=== PATIENT | female | born 2000 | race Hispanic/Latino ===

== ENCOUNTER 2022-10-30 10:56 | Emergency (ER) | payer BC ==
--- OUTSIDE RECORDS SUMMARY | 2022-10-30 10:59 | XMS REPORT | Continuity of Care Document ---
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 2- Seybold thrombosis thrombosis 00:00: - ) ) 00 Externa l 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 2-06 Seybold antibody antibody 00:00: - syndrome syndrome 00 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 l Rheumatoid Rheumatoid Disease Active 2021-11 K vick arthritis arthritis 2-06 Seyb old 00:00: - 00 Externa l Plantar Plantar Disease Active 2021-11 Veronica fasciitis fasciitis 2-06 Seyb old 00:00: - 00 Externa l Flat feet, Flat feet, Disease Active 2021-11 K elsey bilateral bilateral 2-06 Seyb old 00:00: - 00 Externa l Allergies, Adverse Reactions, Alerts Allergy Allergy Status Severity Reaction(s) Onset Inactive Treating Comm ents Source Name Type Date Date Clinician Penicill Propensi Active Hives 2021-11 Veronica ins ty to 2-06 Seybold adverse 00:00: - reaction 00 Externa s l Social History Social Habit Start Date Stop Date Quantity Comments Source Alcohol intake 2022-10-20 2022-10-20 Lifetime Veronica Sey bold - 00:00:00 00:00:00 non-drinker External (finding) Sex Assigned At [birth year] Veronica Chow ybold - 00:00:00 00:00:00 External Smoking Status Start Date Stop Date Source Never smoked tobacco Veronica thorne - External Medications Ordered Filled Start Stop Current Ordering Indication Dosage Frequency Signature Comments Components Source Medication Medication Date Date Medication? Clinician (SIG) Name Name Hydroxychlo 2021-11 Yes Veronica roquine 1-11 Seybold Sulfate 200 00:00: - MG oral 00 Externa Tablet l Baclofen 10 Yes Veronica MG oral 9-23 Seybold Tablet 00:00: - 00 Externa l Gabapentin Yes Veronica 100 MG oral 9-23 Seybold Capsule 00:00: - 00 Externa l Vital Signs Vital Name Observation Time Observation Value Comments Source Systolic blood 2022-10-20 17:13:00 84 mm[Hg] Veronica Seybold - pressure External Diastolic blood 2022-10-20 17:13:00 50 mm[Hg] Bettina y Seybold - pressure External Heart rate 2022-10-20 17:13:00 78 /min Veronica Timothy ramosbold - External Body temperature 2022-10-20 17:13:00 37.06 Georgie Anna ey Seybold - External Respiratory rate 2022-10-20 17:13:00 14 /min Anna ey Seybold - External Body height 2022-10-20 17:13:00 154.9 cm Veronica Timothy ramosbold - External Body weight 2022-10-20 17:13:00 59.421 kg Veronica Timothy ramosbold - External BMI 2022-10-20 17:13:00 24.75 kg/m2 Veronica ramosbobry - External Procedures This patient has no known procedures. Encounters Start End Encounter Admission Attending Care Care Encounter Source Date/Time Date/Time Type Type Clinicians Facility Department ID 2022-10-28 2022-10-28 Outpatient VERONICA DICKSON [id number] Veronica 00:00:00 00:00:00 KAT palacios 2022-10-20 2022-10-20 Outpatient VERONICA DICKSON [id number] Veronica 11:00:00 11:00:00 KAT palacios Results This patient has no known results.
--- NOTE | 2022-10-30 12:29 | RAD REPORT ---
EXAM DESCRIPTION: Mirza Single View10/30/2022 11:49 am CLINICAL HISTORY: Shortness of breath COMPARISON: none FINDINGS: The lungs appear clear of acute infiltrate. The heart is normal size IMPRESSION: No acute abnormalities displayed
[2022-10-30 12:50] LABS: Absolute Lymphocytes (CBC) 2.6 K/uL (0.7-4.9); Hematocrit 38.1 % (36.0-45.0); Lymphocytes % 34.4 % (15.3-44.8); MCV 90.1 fL (80-100); MPV 7.9 fL (7.6-11.3); RBC Red Blood Cell Count 4.23 M/uL (3.86-4.86)
[2022-10-30 12:53] LABS: Protime INR 1.12
--- NOTE | 2022-10-30 13:06 | RAD REPORT ---
EXAM DESCRIPTION: CT - Chest For Pe Angio - 10/30/2022 12:54 pm CLINICAL HISTORY: Chest pain. syncope COMPARISON: No comparisons TECHNIQUE: CT angiogram of the pulmonary arteries was performed with MIP. All CT scans are performed using dose optimization technique as appropriate and may include automated exposure control or mA/KV adjustment according to patient size. FINDINGS: No evidence of pulmonary thromboembolism. No acute aortic finding demonstrated. The lungs are clear. No significant pericardial or pleural fluid. No concerning bony finding. IMPRESSION: No evidence of pulmonary thromboembolism. No acute lung findings.
[2022-10-30 13:12] LABS: Albumin 4.2 g/dL (3.4-5.0); Bilirubin Direct 0.2 mg/dL (0-0.2); Bilirubin Total 0.8 mg/dL (0.2-1.0); Magnesium 2.2 mg/dL (1.6-2.4); Potassium 3.9 mmol/L (3.5-5.1); Protein, Total 8.1 g/dL (6.4-8.2); Troponin High Sensitivity 5.4 pg/mL (<58.9)
--- NOTE | 2022-10-30 14:10 | EDPHYS ---
Physician Documentation [facility] Name: Linette Wilson Age: 22 yrs Sex: Female : 2000 Arrival Date: 10/30/2022 Time: 10:58 Bed 10 Private MD: ED Physician Nguyễn Maki HPI: 10/30 11:13 This 22 yrs old Female presents to ER via EMS with complaints of Passed Out jmm Prior To Arrival. 11:13 The patient has experienced syncope. Onset: The symptoms/episode began/occurred jmm acutely, just prior to arrival. Duration: This was a single episode. Associated injury: The patient did not suffer any apparent associated injury. This is a 22-year-old female with history of antiphospholipid syndrome, DVTs, RA the presents emerged department after syncopal episode which occurred just prior to arrival. Patient was at work washing her hands in the restroom, she was found by a coworker. Patient currently denies any chest pain or shortness of breath. Patient states she recently had a negative ultrasound to reevaluate for DVTs. Patient is not currently taking anticoagulants. Patient denies chest pain. 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 - Social history:: Smoking status: Reported history of juuling and/or vaping. ROS: 11:13 Constitutional: Negative for fever, chills, and weight loss, Cardiovascular: Negative jmm for chest pain, palpitations, and edema, Respiratory: Negative for shortness of breath, cough, wheezing, and pleuritic chest pain, Abdomen/GI: Negative for abdominal pain, nausea, vomiting, diarrhea, and constipation. 11:13 Neuro: Positive for syncope. 11:13 All other systems are negative. Exam: 11:13 Constitutional: This is a well developed, well nourished patient who is awake, alert, jmm and in no acute distress. Head/Face: atraumatic. Eyes: EOMI, no conjunctival erythema appreciated ENT: Moist Mucus Membranes Neck: Trachea midline, Supple Chest/axilla: Normal chest wall appearance and motion. Cardiovascular: Regular rate and rhythm. No edema appreciated Respiratory: Normal respirations, no respiratory distress appreciated Abdomen/GI: Non distended Back: Normal ROM Skin: General appearance color normal MS/ Extremity: Moves all extremities, no obvious deformities appreciated, no edema noted to the lower extremities Neuro: Awake and alert Psych: Behavior is normal, Mood is normal, Patient is cooperative and pleasant Vital Signs: 12:13 BP 117 / 84; Pulse 64; Resp 20; Temp 99.1; Pulse Ox 100% ; Weight 58.06 kg; Height 5 kb3 ft. 1 in. (154.94 cm); Pain 0/10; 14:17 BP 104 / 82; Pulse 63; Resp 18; Pulse Ox 100% on R/A; tm3 12:13 Body Mass Index 24.19 (58.06 kg, 154.94 cm) kb3 MDM: 11:13 Patient medically screened. [facility] 14:09 Data reviewed: vital signs, nurses notes. Counseling: I had a detailed discussion with radha the patient and/or guardian regarding: the historical points, exam findings, and any diagnostic results supporting the discharge/admit diagnosis, lab results, radiology results, the need for outpatient follow up, to return to the emergency department if symptoms worsen or persist or if there are any questions or concerns that arise at home. 10/30 11:14 Order name: Basic Metabolic Panel; Complete Time: 13:15 [facility] 10/30 11:14 Order name: CBC with Diff; Complete Time: 12:55 [facility] 10/30 11:14 Order name: LFT's; Complete Time: 13:15 [facility] 10/30 11:14 Order name: Magnesium; Complete Time: 13:15 [facility] 10/30 11:14 Order name: NT PRO-BNP; Complete Time: 13:15 [facility] 10/30 11:14 Order name: PT-INR; Complete Time: 12:55 [facility] 10/30 11:14 Order name: Troponin HS; Complete Time: 13:15 [facility] 10/30 11:14 Order name: XRAY Chest (1 view); Complete Time: 12:36 [facility] 10/30 11:14 Order name: EKG; Complete Time: 11:14 [facility] 10/30 11:14 Order name: Cardiac monitoring; Complete Time: 14:08 [facility] 10/30 11:14 Order name: EKG - Nurse/Tech; Complete Time: 14:08 [facility] 10/30 11:14 Order name: IV Saline Lock; Complete Time: 14:08 [facility] 10/30 11:14 Order name: Labs collected and sent; Complete Time: 14:08 [facility] 10/30 11:38 Order name: CT Chest For PE Angio; Complete Time: 13:07 [facility] 10/30 11:14 Order name: O2 Per Protocol; Complete Time: 14:08 [facility] 10/30 11:14 Order name: O2 Sat Monitoring; Complete Time: 14:08 [facility] 10/30 13:34 Order name: Misc. Order: Need EKG; Complete Time: 14:08 [facility] Administered Medications: No medications were administered Disposition: 17:07 Co-signature as Attending Physician, Nguyễn Maki MD I agree with the assessment and rt plan of care. Disposition Summary: 10/30/22 14:09 Discharge Ordered Location: Home [facility] Condition: Stable [facility] Diagnosis - Syncope [facility] Followup: [facility] - With: Private Physician - When: 2 - 3 days - Reason: Recheck today's complaints, Continuance of care, Re-evaluation by your physician Discharge Instructions: - Discharge Summary Sheet [facility] - Syncope [facility] Forms: - Medication Reconciliation Form [facility] - Thank You Letter [facility] - Antibiotic Education [facility] - Prescription Opioid Use [facility] Signatures: Dispatcher [employer] Tim Carver PA PA jmm Bradberry, Kelly, RN RN kb3 Nguyễn Maki MD MD rt
--- NOTE | 2022-10-30 14:10 | ER ---
Nurse's Notes [facility] Name: Linette Wilson Age: 22 yrs Sex: Female : 2000 Arrival Date: 10/30/2022 Time: 10:58 Bed 10 Private MD: Diagnosis: Syncope Presentation: 10/30 12:13 Chief complaint: Patient states: Pt reports intermittent CP x2 days with history of DVT kb3 secondary to anti-phospholipid syndrome. Also reports headache that began at 0700 this morning ND resolved after syncopal episode while at work. Pt denies feeling dizzy or light-headed prior to episode and reports headache and chest pain have resolved at this time. Coronavirus screen: Vaccine status: Patient reports receiving the 2nd dose of the covid vaccine. Client denies travel out of the [place] in the last 14 days. Ebola Screen: Patient negative for fever greater than or equal to 101.5 degrees Fahrenheit, and additional compatible Ebola Virus Disease symptoms Patient denies exposure to infectious person. Patient denies travel to an Ebola-affected area in the 21 days before illness onset. Initial Sepsis Screen: Does the patient meet any 2 criteria? No. Patient's initial sepsis screen is negative. Does the patient have a suspected source of infection? No. Patient's initial sepsis screen is negative. Risk Assessment: Do you want to hurt yourself or someone else? Patient reports no desire to harm self or others. Onset of symptoms was October 30, 2022 at 07:00. 12:13 Method Of Arrival: EMS: [facility] kb3 12:13 Acuity: DWAYNE 3 kb3 Triage Assessment: 12:17 General: Appears in no apparent distress. Behavior is calm, cooperative. Pain: Denies kb3 pain. 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 - Social history:: Smoking status: Reported history of juuling and/or vaping. Screenin:00 [facility] ED Fall Risk Assessment (Adult) History of falling in the last 3 months, jl7 including since admission Yes- physiologic fall (2 pts) Confusion or Disorientation No (0 pts) Intoxicated or Sedated No (0 pts) Impaired Gait No (0 pts) Mobility Assist Device Used No (0 pt) Altered Elimination No (0 pt) Score/Fall Risk Level 0 - 2 = Low Risk Oriented to surroundings, Maintained a safe environment, Educated pt \T\ family on fall prevention, incl call for assistance when getting out of bed. Humpty Dumpty Scale Fall Assessment Tool (age< 18yrs) Gender Female (1 pt). Abuse screen: Denies threats or abuse. Denies injuries from another. Nutritional screening: No deficits noted. Tuberculosis screening: No symptoms or risk factors identified. Fall Risk No fall in past 12 months (0 pts). No secondary diagnosis (0 pts). IV access (20 points). Ambulatory Aid- Gait- Normal/Bed Rest/Wheelchair (0 pts) Mental Status- Oriented to own ability (0 pts). Total Martinez Fall Scale indicates No Risk (0-24 pts). Assessment: 13:00 Reassessment: Patient appears in no apparent distress at this time. No changes from jl7 previously documented assessment. Patient and/or family updated on plan of care and expected duration. Pain level reassessed. Patient is alert, oriented x 3, equal unlabored respirations, skin warm/dry/pink. Patient denies pain at this time. Vital Signs: 12:13 BP 117 / 84; Pulse 64; Resp 20; Temp 99.1; Pulse Ox 100% ; Weight 58.06 kg; Height 5 kb3 ft. 1 in. (154.94 cm); Pain 0/10; 14:17 BP 104 / 82; Pulse 63; Resp 18; Pulse Ox 100% on R/A; tm3 12:13 Body Mass Index 24.19 (58.06 kg, 154.94 cm) kb3 ED Course: 10:58 Patient arrived in ED. rg4 11:13 Tim Monge PA is PHCP. jmm 11:13 Nguyễn Maki MD is Attending Physician. jmm 11:49 XRAY Chest (1 view) In Process Unspecified. EDMS 12:17 Triage completed. kb3 12:17 Arm band placed on right wrist. kb3 12:56 CT Chest For PE Angio In Process Unspecified. EDMS 13:00 Patient has correct armband on for positive identification. Bed in low position. Call tereso light in reach. Side rails up X 1. Client placed on continuous cardiac and pulse oximetry monitoring. NIBP monitoring applied. 14:07 EKG done, by ED staff. tm3 14:34 Marcia Anderson, RN is Primary Nurse. jl7 14:35 No provider procedures requiring assistance completed. IV discontinued, intact, jl7 bleeding controlled, No redness/swelling at site. Pressure dressing applied. Administered Medications: No medications were administered Medication: 13:00 VIS not applicable for this client. jl7 Outcome: 14:09 Discharge ordered by . radha 14:35 Discharged to home ambulatory. jl7 14:35 Condition: stable 14:35 Discharge instructions given to patient, family, Instructed on discharge instructions, follow up and referral plans. Demonstrated understanding of instructions, follow-up care. 14:35 Patient left the ED. jl7 Signatures: Dispatcher [employer] EDMS Chantalecaden Tarun tm3 Tim Monge PA PA jmm Garcia, Rubi rg4 Marcia Anderson, RN RN jl7 Rand Lopez, RN RN kb3
[2022-10-30 14:40] VITALS: TEMP 99.1; O2SAT 100
[2022-10-30 14:41] VITALS: BP 104/82
--- NOTE | 2022-11-01 15:55 | EKG ---
Test Date: 2022-10-30 Test Time: 14:05:58 Apple Sorter: TM MEASUREMENT RESULTS: Intervals: Rate: 60 SD: 148 QRSD: 78 QT: 414 QTc: 414 [place]: P: 44 SD: 148 QRS: 75 T: 66 INTERPRETIVE STATEMENTS: Normal sinus rhythm Normal ECG No previous ECG available for comparison Electronically Signed On 11-01-22 15:54:47 DIRECTOR FRANCHISE SALES by Nigel Guzman
== END 2022-10-30 14:35 | disposition home or self-care (01) ==
LOC: ER 10:56
DX: R55 Syncope and collapse (principal); R07.9 Chest pain, unspecified; R51.9 Headache, unspecified; Z88.0 Allergy status to penicillin
CPT/HCPCS: 93005; 85025; 80048; 36415; 83735; 85610; 80076; 84484; 83880; 71275; 71045; 99283; Q9967

== ENCOUNTER 2023-07-02 09:33 | Emergency (ER) | payer BC ==
--- OUTSIDE RECORDS SUMMARY | 2023-07-02 09:36 | XMS REPORT | Continuity of Care Document ---
:2000 Author Organization [facility] t Address [address] [facility]. [address] [place] [address] Care Team Providers Name Role Phone DAVID HUTTON Attending Clinician Unavailable [id number], [id number] Attending Clinician Unavailable Rodriguez Echeverria Attending Clinician Unavailable MD TERESA Attending Clinician Unavailable KAT DICKSON Attending Clinician Unavailable Physician, No Primary or Family Admitting Clinician Unavaila ble Payers Payer Name Policy Type Policy Number Effective Date Expiration Date Timothy marks [facility] 2 [id number] 2022 00:00:00 Problems Condition Condition Condition Status Onset Resolution Last Treating Co mments Source Name Details Category Date Date Treatment Clinician Date 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 00:00: - ) ) 00 Externa l 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 00 [employer] Rheumatoid Rheumatoid Disease Active 2021-11 K hansely arthritis arthritis 2-06 Seyb old 00:00: - 00 Externa l Plantar 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 fasciitis fasciitis 2-06 Seyb old 00:00: - 00 Externa l Flat feet, Flat feet, Disease Active 2021-11 K elsey bilateral bilateral 2-06 Seyb old 00:00: - 00 Externa l Allergies, Adverse Reactions, Alerts Allergy Allergy Status Severity Reaction(s) Onset Inactive Treating Comm ents Source Name Type Date Date Clinician Penicill Propensi Active Hives 2021-11 Martina ins ty to 2-06 Seybold adverse 00:00: - reaction 00 Externa s l Penicill DA Active U RASHES 2015- [facility]04 [place] [facility] Social History Social Habit Start Date Stop Date Quantity Comments Source Alcohol intake 2022-10-20 2022-10-20 Lifetime Martina Heath bold - 00:00:00 00:00:00 non-drinker External (finding) Sex Assigned At [birth year] Martina Chow ybold - 00:00:00 00:00:00 External Smoking Status Start Date Stop Date Source Never smoked tobacco Martina Chowparish old - External Medications Ordered Filled Start Stop Current Ordering Indication Dosage Frequency Signature Comments Components Source Medication Medication Date Date Medication? Clinician (SIG) Name Name Hydroxychlo 2021-11 Yes Martina roquine 1-11 Seybold Sulfate 200 00:00: - MG oral 00 Externa Tablet l Baclofen 10 0 Yes Martina MG oral 9-23 Seybold Tablet 00:00: - 00 Externa l Gabapentin 2021-0 Yes Martina 100 MG oral 9-23 Seybold Capsule 00:00: - 00 Externa l Vital Signs Vital Name Observation Time Observation Value Comments Source Systolic blood 2022-10-20 17:13:00 84 mm[Hg] Martina Chowybold - pressure External Diastolic blood 2022-10-20 17:13:00 50 mm[Hg] Bettina sharif Seybold - pressure External Heart rate 2022-10-20 17:13:00 78 /min Martina ramosbobry - External Body temperature 2022-10-20 17:13:00 37.06 Georgie Anna ramos Seybold - External Respiratory rate 2022-10-20 17:13:00 14 /min Anna ramos Seybold - External Body height 2022-10-20 17:13:00 154.9 cm Martina ramosbobry - External Body weight 2022-10-20 17:13:00 59.421 kg Martina ramosbold - External BMI 2022-10-20 17:13:00 24.75 kg/m2 Martina S eybold - External Procedures This patient has no known procedures. Encounters Start End Encounter Admission Attending Care Care Encounter Source Date/Time Date/Time Type Type Clinicians Facility Department ID 2023-07-15 2023-07-15 Outpatient MARTINA HUTTON [id number] Martina 14:30:00 14:30:00 DAVID palacios 2023-07-13 2023-07-13 Outpatient MARTINA BALL [id number] Martina 10:00:00 10:00:00 QUINN palacios 2023-06-23 2023-06-23 Outpatient MARTINA HUTTON [id number] Martina 00:00:00 00:00:00 DAVID palacios 2023-06-19 2023-06-19 Emergency EM Rodriguez Echeverria [facility] [id number] [facility] 18:12:00 19:30:[address] [place] [address] robby palacios [facility] 2023-06-15 2023-06-15 Outpatient TRINY MARTIN [id number] Martina 00:00:00 00:00:00 MD Hero SALGADO 2023-06-09 2023-06-09 Outpatient MARTINA HUTTON [id number] Martina 00:00:00 00:00:00 DAVID palacios 2022-10-28 2022-10-28 Outpatient MARTINA DICKSON [id number] Martina 00:00:00 00:00:00 KAT palacios 2022-10-20 2022-10-20 Outpatient MARTINA DICKSON [id number] Martina 11:00:00 11:00:00 KAT palacios Results Test Description Test Time Test Comments Results Result Comments Source BASIC METABOLIC PANEL 2023-06-19 19:03:00 Test Item Value Reference Range Interpretation Comme nts SODIUM (test code = NA) 143 mmol/L 134-147 N POTASSIUM (test code = 3.3 mmol/L 3.4-5.0 L K) CHLORIDE (test code = 114 mmol/L 100-108 H CL) CARBON DIOXIDE (test 24 mmol/L 21-32 N code = CO2) ANION GAP (test code = 5.0 GAP calc 4.0-15.0 N GAP) GLUCOSE (test code = 71 MG/DL 70-110 N GLU) BLOOD UREA NITROGEN 10 MG/DL 7-18 N (test code = BUN) GLOMERULAR FILTRATION >=60 max estimate >60 T he Glomerular Filtration RATE (test code = GFR) estGFR Rate is a calculated parameterbased on serum Creatinine, pat ient age and sex. GFR values less than 60 mL/min/1.73 squ are meters are indicative ofChronic Kidney Disease. Values less than 15 mL/min/ 1.73square meters indicate Kidney failure. The ca lculation forGFR is based on the CKD-EPI (2020) calculation. This formulais race indifferent and is the recommended for panchito for GFRby the [facility] Kid[facility] Foundation for Adults.The GFR will not ca lculate if the sex is unkn own or if thepatient's ag e is <18 years. CREATININE (test code = 0.5 MG/DL 0.6-1.0 L CREAT) CALCIUM (test code = CA) 6.6 MG/DL 8.5-10.1 L CBC W/AUTO [id number] 19:02:00 Test Item Value Reference Range Interpretation Comments WHITE BLOOD CELL (test code = 8.1 K/mm3 3.5-11.0 N WBC) RED BLOOD CELL (test code = 3.40 M/mm3 4.70-6.10 L RBC) HEMOGLOBIN (test code = HGB) 10.8 G/DL 10.4-14.9 N HEMATOCRIT (test code = HCT) 29.5 % 31.5-44.1 L MEAN CELL VOLUME (test code = 86.8 Fl 84.5-98.6 N MCV) MEAN CELL HGB (test code = MCH) 31.8 pg 27.0-34.2 N MEAN CELL HGB CONCETRATION 36.6 G/DL 31.5-34.0 H (test code = MCHC) RED CELL DISTRIBUTION WIDTH 12.9 SD 11.5-14.5 N (test code = RDW) PLATELET COUNT (test code = 271 K/mm3 150-450 N PLT) MEAN PLATELET VOLUME (test code 10.30 fL 7.0-10.5 N = MPV) NEUTROPHIL % (test code = NT%) 61.3 % 40-76 N IMMATURE GRANULOCYTE % (test 0.2 % 0.0-5.0 N code = IG%) LYMPHOCYTE % (test code = LY%) 30.2 % 20.5-51.1 N MONOCYTE % (test code = MO%) 6.8 % 1.7-9.3 N EOSINOPHIL % (test code = EO%) 0.9 % 0.0-6.0 N BASOPHIL % (test code = BA%) 0.6 % 0.0-2.0 N NUCLEATED RBC % (test code = 0.0 /100WBC% 0.0-1.0 N NRBC%) NEUTROPHIL # (test code = NT#) 5.0 K/mm3 1.8-7.6 N IMMATURE GRANULOCYTE # (test 0.02 x10 3/uL 0.00-0.03 N code = IG#) LYMPHOCYTE # (test code = LY#) 2.4 K/mm3 0.6-3.2 N MONOCYTE # (test code = MO#) 0.6 K/mm3 0.3-1.1 N EOSINOPHIL # (test code = EO#) 0.1 K/mm3 0.0-0.4 N BASOPHIL # (test code = BA#) 0.1 K/mm3 0.0-0.1 N NUCLEATED RBC # (test code = 0.0 K/mm3 0.0-0.1 N NRBC#) MANUAL DIFF REQUIRED (test code NO DIFF/SCN CRITERIA = MDIFF) Notes Date/Time Note Provider Source 2023-06-19 18:23:00-00:00 [facility] ([facility]) EMERGENCY PROVIDER REPORT REPORT#:[id number] REPORT STATUS: Signed DATE:06/19/23 TIME:1822 PATIENT: LATHA BLAND UNIT #: [id number] ROOM/BED: : 01 AGE: 23 SEX: F PCP PHYS: No Primar y or Family Physician SERVICE AUTHOR: Karthik Martinez SCALEMAKER * ALL edits or amendments must be made on the el ectronic/computer document * Karthik Martinez 06/19/231822: HPI-Syncope Free Text HPI Notes Free Text HPI Notes Patient presents to ED with a syncopal episode w hile at work. Patient was sitting when she felt hot and passed out. Denies head trauma. Denies chest pain, shortness of breath, nausea, vomiting, hea dache, fever, history of seizures, cough. Patient was brought in by EMS. G1. General Confirmed Patient Yes Initial Greet Date/Time 06/19/231815 Presentation Chief Complaint Lost consciousness Syncope Description Single episode Hx Obtained From Patient, EMS )( Onset Occurred Just prior to arrival Symptom Duration Brief Progression since Onset Resolved Exacerbated by Nothing Relieved by Nothing Risk-Syncope Risk Stratification Brackney Coma Score: Copyright Sir Sunny Fontenot Copyright Sir Rita Fontenot Eye opening: (4) Spontaneous Verbal response: (5) Oriented Best motor response: (6) Obeys commands GCS Score: 15 )( Coronary Artery Disease Risk factors reviewed )( Thoracic Aortic Dissection Risk factors revie wed )( Pulmonary Embolism Risk factors reviewed Review of Systems ROS Statements All systems rev neg except as marked. Focused Review of Systems Musculoskeletal Denies: Back pain, Neck pain. Neurologic Reports: Syncope. Denies: Abnormal movem ent, Confusion, Dizziness, Generalized weakness, Headache, Slurred speech, Spinning sen sation, Vision change. Past Medical History - Adult Stated Complaint SYNCOPE Allergies Coded Allergies: Penicillins (RASHES 03/18/16) Home Medications Reported Medications AZITHROMYCIN (ZITHROMAX) DESLORATADINE/PSEUDOEPH SULF ER (CLARINEX-D 24 H OUR 5/240 MG) 1 TAB PO DAILY Additional Medical History Bilateral DVT, RA Smoking status for patients 13 years old or olde r: Never Smoker Physical Exam Vital Signs Vital Signs First Documented: Result Date Time Pulse Ox 100 06/19 1813 B/P 122/67 06/19 1813 B/P Mean 85 06/19 1813 O2 Delivery Room air 06/19 1813 Temp 97.6 06/19 1813 Pulse 99 06/19 1813 Resp 16 06/19 1813 Last Documented: Result Date Time Pulse Ox 100 06/19 1930 O2 Delivery Room air 06/19 1930 Pulse 92 06/19 1930 Resp 20 06/19 1930 B/P 110/66 06/19 1930 B/P Mean 80 06/19 1930 Temp 97.6 06/19 1813 Review of Vital Signs Reviewed Free Text PE Notes Free Text PE Notes General/Const General/Const Awake, Alert, No acute distress, Cooperative, Not toxic appearing Eyes Eyes Atraumatic, No periorbital redness, No per iorbital swelling, No scleral icterus Ears/Nose/Throat Ears/Nose/Throat Atraumatic, Airway patent, Muc ous membranes moist, No facial swelling MS Neck Neck Atraumatic, Supple, No adenopathy, No swel ling, No JVD, No tracheal deviation Resp/Chest Respiratory/Chest Atraumatic, Breath sounds NL, No respiratory distress, No rales, No rhonchi, No wheezi ng, No retractions, No stridor, No chest tenderness Cardiovascular Cardiovascular Heart rate NL, Regular rhythm, H eart sounds NL Abdomen/GI Abdomen/GI Atraumatic, Soft, Non-tender, McBurn ey's non-tender, No guarding, No rebound, No distention Skin Skin Atraumatic, Color NL, No rash, Warm, Dry, Intact, Turgor NL Neurologic Neurologic Oriented X3, Speech NL, No motor def icits, No sensory deficits Interpretation Diagnostics Lab Results Interpretation Results Laboratory Tests 06/19/231842: [Embedded Image Not Available] Laboratory Tests: 06/19 1843 Chemistry Sodium (134 - 147 mmol/L) 143 Potassium (3.4 - 5.0 mmol/L) 3.3 L Chloride (100 - 108 mmol/L) 114 H Carbon Dioxide (21 - 32 mmol/L) 24 Anion Gap (4.0 - 15.0 GAP calc) 5.0 BUN (7 - 18 MG/DL) 10 Creatinine (0.6 - 1.0 MG/DL) 0.5 L Glomerular Filtr Rate (>60 estGFR) >=60 max es timate Glucose (70 - 110 MG/DL) 71 Calcium (8.5 - 10.1 MG/DL) 6.6 L Hematology WBC (3.5 - 11.0 K/mm3) 8.1 RBC (4.70 - 6.10 M/mm3) 3.40 L Hgb (10.4 - 14.9 G/DL) 10.8 Hct (31.5 - 44.1 %) 29.5 L MCV (84.5 - 98.6 Fl) 86.8 MCH (27.0 - 34.2 pg) 31.8 MCHC (31.5 - 34.0 G/DL) 36.6 H RDW (11.5 - 14.5 SD) 12.9 Plt Count (150 - 450 K/mm3) 271 MPV (7.0 - 10.5 fL) 10.30 Neut % (Auto) (40 - 76 %) 61.3 Lymph % (Auto) (20.5 - 51.1 %) 30.2 [place] % (Auto) (1.7 - 9.3 %) 6.8 Eos % (Auto) (0.0 - 6.0 %) 0.9 Baso % (Auto) (0.0 - 2.0 %) 0.6 Neut # (Auto) (1.8 - 7.6 K/mm3) 5.0 Lymph # (Auto) (0.6 - 3.2 K/mm3) 2.4 [place] # (Auto) (0.3 - 1.1 K/mm3) 0.6 Eos # (Auto) (0.0 - 0.4 K/mm3) 0.1 Baso # (Auto) (0.0 - 0.1 K/mm3) 0.1 Abs Immat Gran (auto) (0.00 - 0.03 x10 3/uL) 0 .02 Add Manual Diff (CRITERIA DIFF/SCN) NO Immature Gran % (0.0 - 5.0 %) 0.2 Nucleated RBC % (0.0 - 1.0 /100WBC%) 0.0 Lab Statement Laboratory studies reviewed and considered in e medical decision-making. Point of Care Testing Pulse Oximetry Pulse Ox % 100 On: Room air Interpretation Interpreted by in ECG #1 Interpretation Date 06/19/23 Time 1843 Interpreted by and reviewed by me, ED physician NL ECG Interpretation Normal rate, No STEMI, Nor mal axis Rate 81 ECG Interpretation Note The ECG interpretation was done contemporaneousl y by me. This is an adequate tracing. There is no acute ischemia; the rhythm is normal sinus; CA does not demonstrate AV heart block; QRS does not demonstrate a bundle branch block; ST and T waves do not show any ST elevation to sugg est acute SC; see [place] for details and measurements; agree with computer in terpretation. Re-Evaluation MDM )( Re-Evaluation/Progress #1 Time of Re-Eval 1858 )( Re-Eval Status Improved Re-Eval Neurologic Exam Alert, Oriented X3, No m otor deficits, No sensory deficits Eval Following Treatment Pt. feels better, Condi tion improved Pain Re-Evaluation Denies pain Syncope Adult MDM Note This patient presented with a history of a syncopal episode. The patient is now resting comfortably and feels better, is alert, and is in no distress. The repeat examination is unremarkable and benign. T he patient is neurologically intact, has a normal mental status, and is ambul atory in the ED. The electrocardiogram shows no signs of acute ischem ia, and the history, exam, diagnostic testing and current condition do not suggest that this patient is having an acute myocardial i nfarction, significant arrhythmia, unstable angina, a stroke/TIA, a significant vascular eric nt, gastrointestinal bleeding, sepsis, or other significant patholo gy that would warrant further testing, continued ED treatment, admission, or cardiology or other spe cialist consultation at this point. The vital signs have been stable. The patient's condition is stable and appropriate for discharge. T he patient will pursue further outpatient evaluation with the primary care physic mono, other designated physician or live truck operator. The patient and/or caregivers petersen ve expressed a clear and thorough understanding and agree to follow up as instructed. 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) Safety Concerns Patient is safe Differential Diagnosis )( Differential Diagnosis Anemia, Dehydration, H ead trauma, Hypoglycemia, Vasovagal syncope Findings/Social Determinants Presentation Acute Severity Evaluation Non life-threatening Diagnosis Appears Non-critical Patient Discharge Departure Vital Signs/Condition Vital Signs First Documented: Result Date Time Pulse Ox 100 06/19 1813 B/P 122/67 06/19 1813 B/P Mean 85 06/19 1813 O2 Delivery Room air 06/19 1813 Temp 97.6 06/19 1813 Pulse 99 06/19 1813 Resp 16 06/19 1813 Last Documented: Result Date Time Pulse Ox 100 06/19 1930 O2 Delivery Room air 06/19 1930 Pulse 92 06/19 1930 Resp 20 06/19 1930 B/P 110/66 06/19 1930 B/P Mean 80 06/19 1930 Temp 97.6 06/19 1813 All vital signs available at the time of this en try have been reviewed. Condition Stable Clinical Impression Clinical Impression Primary Impression: Syncope Time of Impression 1916 Disposition Decision Discharge )( Discharged to Home Yes )( Time 1916 )( Date 06/19/23 Discharge/Care Plan Counseled Regarding Diagnosis, Lab resul ts, Need for follow-up, When to return to ED Patient Instructions Dizziness Syncope Additional Instructions Recommend follow-up with your PCP in 2 to 3 days . If you do not have insurance and/or having difficulty follow-up with your doctor you can contact the following entities to arrang e follow-up. 1) [facility]: [facility] @ [phone] They have locations in [facility], [place], [place], [place]. Service provided within the network include prim ivan care, woman's health, pediatric care, behavioral health, dental, men's health. 2) [facility]: [email or web address] [facility]: [phone] Service provided to include pediatrics, family m edicine, immunizations, behavioral health, woman services. 3) [facility]: [email or web address] for locations Discharge Note I have spoken with the patie nt and/or caregivers. I have explained the patient's condition, diagnoses and jonathon atment plan based on the information available to me at this time. I have answered the patient's and/ or caregiver's questions and addressed any concerns. The patient and/or careg yovani have as good an understanding of the patient 's diagnosis, condition and treatment plan as can be expected at this point. The vital signs have bee n stable. The patient's condition is stable and appr opriate for discharge from the emergency department. The patient will pursue further outpatient evalu ation with the primary care physician or other designated or consulting phys ician as outlined in the discharge instructions. The patient and/or caregivers are agreeable to this plan of care and follow-up instructions have been exp lained in detail. The patient and/or caregivers have received these instructio ns in written format and have expressed an understanding of the discharge inst ructions. The patient and/or caregivers are aware that any significant change in condition or worsening of symptoms should prompt an immediate return to th is or the closest emergency department or a call to 911. Quality Measures 12-Lead ECG for CP Performed documented Preg Test for Women w/Abd Pa in Female age 14-50, Preg test not ordered, Known to be Syncope Age 18 or older, Syncope, Head CT was no t ordered Rodriguez Echeverria 06/20/23 0805: Patient Discharge Departure Supervising Physician Note MidLv Saw Pt Alone I have reviewed the PA/SCALEMAKER's note and plan of car e. I was available for consultation as needed at al l times during the patient's visit in the emergency department. I agree with the clinical impression , plan and disposition. Electronically Signed by Karthik Martinez NP on 06/19 at 5692 Electronically Signed by Rodriguez Echeverria DO on at 0805 RPT #: [id number] END OF REPORT
[2023-07-02 10:20] LABS: Absolute Lymphocytes (CBC) 2.5 K/uL (0.7-4.9); Hematocrit 34.6 % (36.0-45.0); Lymphocytes % 34.7 % (15.3-44.8); MPV 7.8 fL (7.6-11.3); Platelets 293 thou/uL (152-406)
[2023-07-02 10:47] LABS: Potassium 4.4 mEq/L (3.5-5.1); Troponin High Sensitivity 5.9 pg/mL (<58.9)
--- NOTE | 2023-07-02 11:25 | RAD REPORT ---
EXAM DESCRIPTION: US - Transvaginal OB - 07/02/2023 11:08 am CLINICAL HISTORY: 8 weeks preg, abd pain, bleeding COMPARISON: No comparisons FINDINGS: Single IUP identified with positive heart tones. The crown-rump length measures 1.7 cm which is consistent with 8 weeks 1 day. Probable corpus luteal cyst in the right ovary. Bilateral ovarian blood flow is present. The right ov ivan has a volume of 15.5 cc. The left ovary is volume of 5.6 cc. No free fluid. IMPRESSION: Single IUP with positive heart tones measuring 8 week 1 day with CARMEN of 02/10/2024 . Bilateral ovarian blood flow.
--- NOTE | 2023-07-02 11:25 | RAD REPORT ---
EXAM DESCRIPTION: US - Extremity Venous Uni Ltd - 07/02/2023 11:08 am CLINICAL HISTORY: Pain COMPARISON: None. TECHNIQUE: Real-time sonographic evaluation of the left lower extremity deep venous system was perfo rmed. FINDINGS: Normal compressibility, flow augmentation, phasic flow and spontaneous flow is identified in the left lower extremity deep venous system. No intraluminal filling defects seen. IMPRESSION: No DVT in the left lower extremity.
[2023-07-02 11:44] LABS: Specific Gravity 1.008 (1.005-1.030); Urine Bacteria None Seen /HPF (<20); Urine Bilirubin NEGATIVE (Negative); Urine Blood Negative (Negative); Urine Clarity Turbid (Clear); Urine Color Colorless (Yellow); Urine Glucose NEGATIVE (Negative); Urine Protein NEGATIVE (Negative); Urine RBC <5 /HPF (None Seen); Urine Urobilinogen Normal (Normal); Urine pH 7.5 (5.0-7.0)
[2023-07-02 11:45] LABS: Specific Gravity 1.008 (1.005-1.030)
--- NOTE | 2023-07-02 11:53 | EDPHYS ---
Physician Documentation [facility] Name: Linette Wilson Age: 23 yrs Sex: Female : 2000 Arrival Date: 07/02/2023 Time: 09:33 Bed 20 Private MD: ED Physician Marco Waterman HPI: 07/02 09:50 This 23 yrs old Female presents to ER via Unassigned with complaints of Back rn Pain, Leg Pain, Chest Pain, 8 wks preg. 09:50 The patient presents to the emergency department with abdominal pain, vaginal bleeding, rn that is light. The estimated gestational age is 8 weeks. course: Leakage of Fluid: none appreciated. Associated signs and symptoms: Pertinent positives: abdominal pain, chest pain, vaginal bleeding, Pertinent negatives: fever, seizure, shortness of breath. The patient has not experienced similar symptoms in the past. The patient has not recently seen a physician. Pt reports approx 8 weeks , has been having 2 days of lower back pain, abd cramps, was spotting for a little while and now bleeding resolved. Also noticed mild right sided chest "poking", and has hx of DVT in setting of COVID shot and no longer takes eliquis. Also reports left leg aching. No trauma. No fever. No sob. NO hemoptysis. No syncope. . Historical: - Allergies: 09:40 PENICILLINS; eh3 - PMHx: 09:40 antiphospholipid syndrome; Deep vein thrombosis; Rheumatoid Arthritis; eh3 - Immunization history:: Adult Immunizations up to date. - Social history:: Smoking status: unknown. - Family history:: not pertinent. - Hospitalizations: : No recent hospitalization is reported. ROS: 09:50 Constitutional: Negative for fever, chills, and weight loss, Eyes: Negative for injury, rn pain, redness, and discharge, Cardiovascular: Negative for palpitations, and edema, Respiratory: Negative for shortness of breath, cough, wheezing Abdomen/GI: Negative for diarrhea, and constipation, Back: + lower back pain : Negative for current vaginal bleeding MS/Extremity: Negative for injury and deformity, Skin: Negative for injury, rash, and discoloration, Neuro: Negative for headache, weakness, numbness, tingling, and seizure. Exam: 09:52 Constitutional: This is a well developed, well nourished patient who is awake, alert, rn and in no acute distress. Head/Face: Normocephalic, atraumatic. Cardiovascular: Regular rate and rhythm. No pulse deficits. Respiratory: No increased work of breathing, no retractions or nasal flaring. Abdomen/GI: soft, no focal tenderness, no rebound Back: No spinal tenderness. No costovertebral tenderness. Full range of motion. Skin: Warm, dry MS/ Extremity: Pulses equal, no cyanosis. Neurovascular intact. Full, normal range of motion. Equal circumference. Neuro: Awake and alert, GCS 15 10:46 ECG was reviewed by the Attending Physician. rn Vital Signs: 09:40 BP 125 / 79; Pulse 74; Resp 20; Temp 98.4(O); Pulse Ox 100% on R/A; Weight 56.7 kg; eh3 Height 5 ft. 1 in. ; 10:40 BP 127 / 74; Pulse 78; Resp 14; Pulse Ox 100% on R/A; eh3 11:40 BP 119 / 72; Pulse 80; Resp 14; Pulse Ox 100% on R/A; eh3 09:40 Body Mass Index 23.62 (56.70 kg, 154.94 cm) 3 MDM: 09:37 Patient medically screened. rn 10:20 Refusal of service: The patient/guardian displays adequate decision making capability rn and despite a detailed discussion of alternatives, benefits, risks, and consequences refuses: CT Scan, all X-rays. 11:35 Differential diagnosis: anxiety, pleurisy, PE, DVT. Data reviewed: vital signs, nurses rn notes, lab test result(s), EKG, radiologic studies, ultrasound, and as a result, I will discharge patient. Counseling: I had a detailed discussion with the patient and/or guardian regarding the historical points, exam findings, and any diagnostic results supporting the discharge/admit diagnosis, lab results, radiology results, the need for outpatient follow up, to return to the emergency department if symptoms worsen or persist or if there are any questions or concerns that arise at home. 07/02 09:49 Order name: Basic Metabolic Panel; Complete Time: 11:22 rn 07/02 09:49 Order name: CBC with Diff; Complete Time: 10:30 rn 07/02 09:49 Order name: NT PRO-BNP; Complete Time: 11:22 rn 07/02 09:49 Order name: Troponin HS; Complete Time: 11:22 rn 07/02 09:49 Order name: HCG-Quantitative; Complete Time: 11:22 rn 07/02 09:49 Order name: Rh Type rn 07/02 09:49 Order name: Test, Urine; Complete Time: 11:52 rn 07/02 09:49 Order name: Urinalysis w/ reflexes; Complete Time: 11:52 rn 07/02 09:49 Order name: Extremity Venous Uni Ltd US; Complete Time: 11:31 rn 07/02 10:04 Order name: Transvaginal OB; Complete Time: 11:31 EDMS 07/02 09:49 Order name: EKG; Complete Time: 09:50 rn 07/02 09:49 Order name: Cardiac monitoring; Complete Time: 10:15 rn 07/02 09:49 Order name: EKG - Nurse/Tech; Complete Time: 10:15 rn 07/02 09:49 Order name: IV Saline Lock; Complete Time: 10:16 rn 07/02 09:49 Order name: Labs collected and sent; Complete Time: 10:16 rn 07/02 09:49 Order name: O2 Per Protocol; Complete Time: 10:16 rn 07/02 09:49 Order name: O2 Sat Monitoring; Complete Time: 10:16 rn EC:46 Rate is 66 beats/min. Rhythm is regular. QRS [place] is Normal. GA interval is normal. QRS rn interval is normal. QT interval is normal. No Q waves. T waves are Normal. No ST changes noted. Clinical impression: NSR w/ Non-specific ST/T Changes. Interpreted by me. Reviewed by me. Administered Medications: No medications were administered Disposition Summary: 07/02/23 11:53 Discharge Ordered Location: Home rn Problem: new rn Symptoms: have improved rn Condition: Stable rn Diagnosis - Threatened rn - Chest pain, unspecified rn - Pain in left leg rn Followup: rn - With: Private Physician - When: As needed - Reason: Recheck today's complaints, Re-evaluation by your physician Discharge Instructions: - Discharge Summary Sheet rn - Nonspecific Chest Pain, Adult rn - Pain Without a Known Cause rn - Threatened Miscarriage rn Forms: - Medication Reconciliation Form rn - Thank You Letter rn - Antibiotic internal controls analyst - Prescription Opioid Use rn - Patient Portal Instructions rn - Leadership Thank You Letter rn Signatures: Dispatcher [employer] EDMS Marco Waterman MD MD rn ShayRanjana RN RN 3 Corrections: (The following items were deleted from the chart) 10: 09:50 OB Limited+US.RAD.BRZ ordered. EDMS EDMS 10:32 09:50 Chest Single View+RAD.RAD.BRZ ordered. EDMS EDMS
--- NOTE | 2023-07-02 11:53 | ER ---
Nurse's Notes [facility] Name: Linette Wilson Age: 23 yrs Sex: Female : 2000 Arrival Date: 07/02/2023 Time: 09:33 Bed 20 Private MD: Diagnosis: Threatened ;Chest pain, unspecified;Pain in left leg Presentation: 07/02 09:40 Chief complaint: Patient states: hx of of BLE DVT after 1st Pfizer Covid shot, woke up eh3 with chest pain and vaginal bleeding 2 days ago, bleeding has stopped but chest pain and lower back pain persist today. Pt is . Coronavirus screen: Vaccine status: Patient reports receiving the 1st dose of the Covid vaccine. Ebola Screen: No symptoms or risks identified at this time. Initial Sepsis Screen: Does the patient meet any 2 criteria? No. Patient's initial sepsis screen is negative. Does the patient have a suspected source of infection? No. Patient's initial sepsis screen is negative. Risk Assessment: Do you want to hurt yourself or someone else? Patient reports no desire to harm self or others. Onset of symptoms was July 02, 2023. 09:40 Method Of Arrival: Ambulatory 3 09:40 Acuity: DWAYNE 3 eh3 Triage Assessment: 09:40 General: Appears in no apparent distress. uncomfortable, Behavior is calm, cooperative, eh3 appropriate for age. Pain: Complains of pain in back and chest. Neuro: Level of Consciousness is awake, alert, obeys commands, Oriented to person, place, time, situation. Cardiovascular: Capillary refill < 3 seconds Patient's skin is warm and dry. Cardiovascular: Edema is absent. Respiratory: Airway is patent Respiratory effort is even, unlabored, Respiratory pattern is regular, symmetrical. GI: Abdomen is round non-distended. : Reports vaginal bleeding that is bright red, 2 days ago. Derm: Skin is healthy with good turgor, Skin is pink, warm \T\ dry. Musculoskeletal: Circulation, motion, and sensation intact. Range of motion: intact in all extremities. Historical: - Allergies: 09:40 PENICILLINS; eh3 - PMHx: 09:40 antiphospholipid syndrome; Deep vein thrombosis; Rheumatoid Arthritis; eh3 - Immunization history:: Adult Immunizations up to date. - Social history:: Smoking status: unknown. - Family history:: not pertinent. - Hospitalizations: : No recent hospitalization is reported. Screenin:40 [facility] ED Fall Risk Assessment (Adult) Score/Fall Risk Level 0 - 2 = Low Risk. Abuse eh3 screen: Denies threats or abuse. Denies injuries from another. Nutritional screening: No deficits noted. Tuberculosis screening: No symptoms or risk factors identified. Assessment: 09:40 Reassessment: No changes from previously documented assessment. See triage assessment. eh3 Neuro: Feliciano Agitation-Sedation Scale (RASS): 0 - Alert and Calm Level of Consciousness is awake, alert, obeys commands, Oriented to person, place, time, situation, Hat Copyist are equal bilaterally Moves all extremities. Gait is steady, Speech is normal, Pupils are PERRLA. 10:40 Reassessment: Patient appears in no apparent distress at this time. Patient and/or eh3 family updated on plan of care and expected duration. Pain level reassessed. Patient is alert, oriented x 3, equal unlabored respirations, skin warm/dry/pink. Vital Signs: 09:40 BP 125 / 79; Pulse 74; Resp 20; Temp 98.4(O); Pulse Ox 100% on R/A; Weight 56.7 kg; eh3 Height 5 ft. 1 in. ; 10:40 BP 127 / 74; Pulse 78; Resp 14; Pulse Ox 100% on R/A; eh3 11:40 BP 119 / 72; Pulse 80; Resp 14; Pulse Ox 100% on R/A; eh3 09:40 Body Mass Index 23.62 (56.70 kg, 154.94 cm) eh3 ED Course: 09:36 Patient arrived in ED. ts1 09:37 Marco Waterman MD is Attending Physician. rn 09:40 Arm band placed on. eh3 09:40 Patient has correct armband on for positive identification. Bed in low position. Call eh3 light in reach. Side rails up X2. Provided Education on: Use of call su. Client placed on continuous cardiac and pulse oximetry monitoring. NIBP monitoring applied. Door closed. Noise minimized. Lights dimmed. Warm blanket given. 09:40 Inserted saline lock: 20 gauge in left antecubital area, using aseptic technique. Blood eh3 collected. 09:51 Ranjana Shay, JENNIFER is Primary Nurse. eh3 10:19 Triage completed. eh3 11:10 Extremity Venous Uni Ltd US In Process Unspecified. EDMS 11:10 Transvaginal OB In Process Unspecified. EDMS 11:26 Test, Urine Sent. 6 11:26 Urinalysis w/ reflexes Sent. 6 12:00 No provider procedures requiring assistance completed. IV discontinued, intact, eh3 bleeding controlled, No redness/swelling at site. Pressure dressing applied. Administered Medications: No medications were administered Medication: 12:00 VIS not applicable for this client. 3 Outcome: 11:53 Discharge ordered by . rn 12:15 Discharged to home ambulatory. eh3 12:15 Condition: stable 12:15 Discharge instructions given to patient, Instructed on discharge instructions, follow up and referral plans. Demonstrated understanding of instructions, follow-up care. 12:15 Patient left the ED. 3 Signatures: Dispatcher [employer] Marco Thomas MD MD rn Hall, Erin, RN RN 3 Arlyn Ledesma 6 Bobbi Benjamin PAS PAS ts1
[2023-07-02 12:22] VITALS: TEMP 98.4; O2SAT 100
[2023-07-02 12:24] VITALS: BP 119/72
--- NOTE | 2023-07-05 18:08 | EKG ---
Test Date: 2023-07-02 Test Time: 09:58:51 Theatre Instructor: ZO MEASUREMENT RESULTS: Intervals: Rate: 66 CA: 150 QRSD: 82 QT: 380 QTc: 398 Arco: P: 65 CA: 150 QRS: 78 T: 74 INTERPRETIVE STATEMENTS: Normal sinus rhythm with sinus arrhythmia Early repolarization Normal ECG Compared to ECG 10/30/2022 14:05:58 Early repolarization now present Electronically Signed On 07-05-23 18:00:18 CDT by Nigel Guzman
== END 2023-07-02 12:15 | disposition home or self-care (01) ==
LOC: ER 09:33
DX: O20.0 Threatened abortion (principal); O26.891 Other specified pregnancy related conditions, first trimester; R07.9 Chest pain, unspecified; M79.605 Pain in left leg; Z3A.08 8 weeks gestation of pregnancy; Z88.0 Allergy status to penicillin; Z86.718 Personal history of other venous thrombosis and embolism
CPT/HCPCS: 36415; 76817; 80048; 81001; 81025; 83880; 84484; 84702; 85025; 93005; 93971; 99284